=== PATIENT | male | born 1960 | race Caucasian/White ===

== ENCOUNTER 2022-09-30 22:52 | Observation (INO) | payer OTHER ==
[2022-09-30 22:57] VITALS: BMI 26.6
[2022-10-01] MEDS ORDERED: MAG HYDROX/AL HYDROX/SIMETH -MYLANTA- ORAL SUSPENSION PO ONE
[2022-10-01] MEDS ORDERED: MAG HYDROX/AL HYDROX/SIMETH 30 ML UNIT-DOSE CUP ONE (00:19)
[2022-10-01] MEDS ORDERED: FAMOTIDINE 20 MG/50 ML IVPB 20 MG/50 ML MG IVPB ONE ×2 (00:19)
[2022-10-01 00:59] LABS: BASO % 0.8 % (0-2.0); EOS % 2.8 % (0-4.5); HEMATOCRIT 47.3 % (35.4-49); HEMOGLOBIN 15.6 GM/dL (11.7-16.9); LYMPH % 23.1 % (8-40); MCH 30.9 pg (25.7-33.7); MCHC 32.9 g/dl (32.0-35.9); MEAN CELL VOLUME 93.9 fl (80-96); MEAN PLT VOLUME 8.1 fl (7.5-11.1); MONO % 5.7 % (3.8-10.2); NEUT % 67.6 % (42.8-82.8); PLATELET COUNT 275 10^3/uL (134-434); RBC 5.04 M/mm3 (4.00-5.60); RDW 14.2 % (11.9-15.9); WHITE BLOOD COUNT 13.4 K/mm3 (4.0-10.0)
[2022-10-01 01:16] LABS: POTASSIUM 4.2 mmol/L (3.5-5.1)
[2022-10-01 01:18] LABS: ALBUMIN 3.6 g/dl (3.4-5.0); CALCIUM 9.3 mg/dL (8.5-10.1)
[2022-10-01 01:19] LABS: BLOOD UREA NITROGEN 20.2 mg/dL (7-18)
[2022-10-01 01:22] LABS: CREATININE 0.8 mg/dL (0.55-1.3)
[2022-10-01 01:23] LABS: BILIRUBIN,TOTAL 0.2 mg/dL (0.2-1); TOT PROT 6.6 g/dl (6.4-8.2)
[2022-10-01] MEDS ORDERED: ASPIRIN 81 MG CHEWABLE TABLETS PO ONE (02:32)
[2022-10-01] MEDS ORDERED: ASPIRIN 81 MG CHEWABLE TABLETS ONE ×2 (02:51→09:32)
[2022-10-01] MEDS ORDERED: ATORVASTATIN CA 80 MG TABLET (FP) PO ONE (04:34)
[2022-10-01] MEDS ORDERED: ATORVASTATIN CA 80 MG TABLET (FP) ONE (05:03)
[2022-10-01 06:47] LABS: HEMATOCRIT 45.2 % (35.4-49); HEMOGLOBIN 15.1 GM/dL (11.7-16.9); MCH 31.2 pg (25.7-33.7); MCHC 33.4 g/dl (32.0-35.9); MEAN CELL VOLUME 93.5 fl (80-96); PLATELET COUNT 271 10^3/uL (134-434); RBC 4.84 M/mm3 (4.00-5.60); RDW 13.6 % (11.9-15.9); WHITE BLOOD COUNT 10.6 K/mm3 (4.0-10.0)
[2022-10-01 06:51] LABS: POTASSIUM 4.2 mmol/L (3.5-5.1)
[2022-10-01 06:54] LABS: ALBUMIN 3.3 g/dl (3.4-5.0); CALCIUM 8.8 mg/dL (8.5-10.1); MAGNESIUM 2.2 mg/dL (1.8-2.4)
[2022-10-01 06:55] LABS: BLOOD UREA NITROGEN 19.1 mg/dL (7-18)
[2022-10-01 06:57] LABS: PHOSPHOROUS 3.1 mg/dL (2.5-4.9)
[2022-10-01 06:58] LABS: CREATININE 0.7 mg/dL (0.55-1.3)
[2022-10-01 06:59] LABS: BILIRUBIN,TOTAL 0.4 mg/dL (0.2-1); TOT PROT 6.1 g/dl (6.4-8.2)
[2022-10-01] MEDS ORDERED: ENOXAPARIN NA (PORCINE) 80 MG/0.8 ML DISP.SYRIN SQ ONE (09:32)
[2022-10-01] MEDS: ASPIRIN 81 MG CHEWABLE TABLETS PO SCH (09:37)
[2022-10-01] MEDS: ENOXAPARIN NA (PORCINE) 80 MG/0.8 ML DISP.SYRIN SQ SCH ×2 (09:38→21:17)
[2022-10-01] MEDS: ATORVASTATIN CA 80 MG TABLET (FP) PO SCH (21:17)
[2022-10-02] MEDS: ASPIRIN 81 MG CHEWABLE TABLETS PO SCH (10:26)
[2022-10-02] MEDS: ENOXAPARIN NA (PORCINE) 80 MG/0.8 ML DISP.SYRIN SQ SCH ×2 (10:26→21:40)
[2022-10-02] MEDS: ATORVASTATIN CA 80 MG TABLET (FP) PO SCH (21:39)
[2022-10-03] MEDS ORDERED: REGADENOSON 0.4 MG/5 ML PRE-FILLED SYRINGE IVPUSH ONE ×2 (09:17→10:00)
[2022-10-03] MEDS: ENOXAPARIN NA (PORCINE) 80 MG/0.8 ML DISP.SYRIN SQ SCH (09:49)
[2022-10-03] MEDS: ASPIRIN 81 MG CHEWABLE TABLETS PO SCH (09:49)
[2022-10-03 13:37] VITALS: BP 138/86; PULSE 77; RESP 23; TEMP 98
== END 2022-10-03 16:00 | disposition home or self-care (01) ==
LOC: JER 22:52 → JERBED 10-01 02:33 → J2W 10-01 10:34
PROVIDERS: ADMIT Internal Medicine
PROC: 3E023GC Introduction of Other Therapeutic Substance into Muscle, Percutaneous Approach (ICD-10-PCS; principal; 2022-10-01)
PROC: 3E033GC Introduction of Other Therapeutic Substance into Peripheral Vein, Percutaneous Approach (ICD-10-PCS; 2022-10-01)
DX: I25.10 Atherosclerotic heart disease of native coronary artery without angina pectoris (principal); I25.2 Old myocardial infarction; R77.8 Other specified abnormalities of plasma proteins; E78.5 Hyperlipidemia, unspecified; Z29.8 Encounter for other specified prophylactic measures
CPT/HCPCS: 36415; 71046-TC-FY; 78452-TC; 80053; 80061; 83036; 83735; 84100; 84443; 84484; 85025; 85027; 85379; 93005; 93010; 93017; 93306-TC; 96365; 96372; 96375; 99285-25; A9502; G0378; J2785

== ENCOUNTER 2023-07-09 12:16 | Emergency (ER) | payer OTHER ==
[2023-07-09 12:26] VITALS: BP 117/72; PULSE 86; RESP 18; TEMP 98.7; BMI 26.6
== END 2023-07-09 13:41 | disposition home or self-care (01) ==
LOC: JERFT 12:16
DX: R05.9 Cough, unspecified (principal); R09.89 Other specified symptoms and signs involving the circulatory and respiratory systems; R09.81 Nasal congestion; R09.82 Postnasal drip; J30.9 Allergic rhinitis, unspecified; Z20.822 Contact with and (suspected) exposure to COVID-19
CPT/HCPCS: 0241U-QW; 99283-25